=== PATIENT | male | born 2000 | race Two or more races ===

== ENCOUNTER 2022-02-28 18:15 | Emergency (ER) | payer MEDICAID ==
[~2022-02-28] VITALS: Ht 177.8 cm; Wt 85.9 kg
[2022-02-28] MEDS ORDERED: FLUORESCEIN SOD OPTH TEST STRIP RIGHTEYE ONE (22:00)
[2022-02-28] MEDS ORDERED: TETRACAINE HCL 0.5% OPTH(EYE) SOLN 4ML RIGHTEYE ONE (22:00)
[2022-02-28] MEDS ORDERED: CIP03OS RIGHTEYE (22:45)
[2022-02-28 23:00] VITALS: BP 148/80
== END 2022-02-28 23:06 | disposition home or self-care (01) ==
LOC: ER 18:19
DX: T15.01XA Foreign body in cornea, right eye, initial encounter (principal); Z79.899 Other long term (current) drug therapy; X58.XXXA Exposure to other specified factors, initial encounter; Y93.89 Activity, other specified; Y92.89 Other specified places as the place of occurrence of the external cause; Y99.8 Other external cause status